=== PATIENT | male | born 1970 | race Caucasian/White ===

== ENCOUNTER 2017-01-16 15:33 | Inpatient (IN) | payer OTHER ==
[~2017-01-16] VITALS: Ht 177.8 cm; Wt 122.0 kg
[2017-01-16 18:09] VITALS: PULSE 85
[2017-01-16 18:14] VITALS: BP 122/80; PULSE 85; RESP 18; O2SAT 96
--- NOTE | 2017-01-16 18:28 | NUR ---
Admit Pt admitted via EMS at 1755. Conversant and able to laugh with EMS staff. Rating chest pain 01/27. VSS. Tele SR. O2 at 2L NC sats stable. notified that pt has arrived. Pt oriented to room. Will continue to monitor.
[2017-01-16] MEDS ORDERED: Ondansetron 2 mg/mL 2 mL Inj IVPUSH PRN (19:55)
[2017-01-16] MEDS ORDERED: Polyethylene Glycol (PEG) 17 Gm Powder PO PRN (19:55)
[2017-01-16] MEDS ORDERED: Alum-Mag Hydrox-Simeth 30 mL Suspension PO PRN (19:55)
[2017-01-16] MEDS ORDERED: Senna-Docusate 8.6-50 mg Tablet PO PRN (19:55)
--- NOTE | 2017-01-16 20:21 | PCM.HPMED ---
Subjective Date of Service Jan 16, 2017 Primary Provider: Admitting Physician: Julian Bailey MD Primary Care Physician: Tamara Attending Physician: Julian Bailey MD Admit Status: Direct Admit (patient transferred from [facility] ED) Chief Complaint: Acute onset chest pain/pressure radiating to the left upper extremity and jaw onset today. History of Present Illness: This is a pleasant 46-year-old male with sleep apnea on CPAP mask, and reports being treated for prediabetes with metformin I his primary care provider at the [place]. Patient states his hemoglobin A1c has never been higher than 5.4. Patient presented to the [facility] ED via walk-in after having experienced acute onset today 8 out of 10 crushing chest pressure that radiated to his left upper extremity and shoulder and left jaw. He states that he was sitting at rest at work when he began to experience this pain. The pain lasted for approximately 10 minutes. He attempted to get up and walk across the street to the fire department to have his blood pressure checked and states that in the middle of the street he began to experience severe 10 out of 10 crushing chest pain. He was able to make it back to his office and was transported to the ED at that time by a coworker. Patient states that for the past 7 days he has been experiencing what he calls a heartburn type sensation and tightness in his chest. He reports that he has been under considerable amount of stressors at work. 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 He states that just this morning he informed his boss he needed additional help. Patient reports chills, diaphoresis, shortness of breath and dyspnea associated with this chest pain. Patient is currently taking metformin 500 mg twice a day for prediabetes. He has strong family history of diabetes and SC in his first surgery MOTHER and father. His father is alive but had his first SC at age 36, and his mother who is now at age 54 had her first SC. Patient denied nausea, vomiting , headaches, fevers, sore throat, cough, sick contacts, history of TB or family history of TB, weight loss, abdominal pain or diarrhea, constipation hematuria. Patient has no known drug allergies A [facility] patient EKG was essentially normal 2 and he had negative troponin I. She was given a GI cocktail without help. He was diagnosed with unstable angina by Jorge Andrews M.D. at [place]. He is a direct admit for acute coronary syndrome rule out and was admitted for observation and further workup. At [facility] ED patient was given Nitropaste 2 and states it did not help chest pain. Patient states he did get a headache. She was given 325 mg of aspirin, Tylenol 650 mg given once, and morphine IV 2 mg. She received Ativan 0.5 mg. Patient received IV Dilaudid 1 mg. Chest x-ray at [facility] was normal Chest CT angiogram showed: Normal lung herzog, normal great vessels, normal mediastinum, no masses, no infiltrates, no dissection, or aneurysm, no adenopathy, no effusion. EKGs: Normal sinus rhythm with a rate of 70 QTc 423, LA interval 174 ms, no ST segment elevation or depression, no T-wave abnormalities. Normal EKG. Labs from [facility] include: Hemogram showed: WBC 8.9, H/H 14.8/44.1 with normal differential, platelet count 335, PMNs 58.9% and lymphs 30.6%. Chemistry panel: Showed a total bilirubin of 1.2 which is high, range is 0.0-1.0 , otherwise normal chemistry panel. Troponin I less than 0.05 which is normal in the range of 0.00-1.5. INR was 1.0/ PTT 30 Review of Systems: A comprehensive review of systems was conducted and was negative except as mentioned in history of present illness. Home Medications Atorvastatin 20 mg daily Metformin 500 mg twice a day Magnesium oral PMH Obesity Migraine type Headaches, Prediabetes on metformin Obstructive sleep apnea, on CPAP Surgical History Right knee arthroscopic 2 most recently 10/08/2016 Deviated septum Appendectomy Cholecystectomy Vasectomy Family History Mother history of COPD , and history of SC at age 44, Father alive SC at age 36 Social History Hx Alcohol Use: Yes (rare) Hx Substance Use: No Hx Tobacco Use: No Living Arrangement: with Family (lives with his Nora telephone [phone]) Exam Vital Signs Vital Sign - Last Date Time Temp Pulse Resp B/P Pulse Ox O2 Delivery O2 Flow Rate FiO2 01/16/17 18:14 36.5 85 18 122/80 96 Nasal Cannula 1.00 Exam General: She is moderately obese, but alert and oriented 3 speaking full sentences, in no acute distress, resting comfortably in bed, jovial at times. HEENT: NC/AT, eyes, PERRLA, EOMI, neck, soft supple, no adenopathy, no JVD, no masses, no thyromegaly, throat mucous membranes pink and moist, no erythema, no exudates, no tonsillar swelling, no uvular deviation. Lungs: CTAB all herzog, no wheezes, no rhonchi, no crackles, no adventitious lung sounds, no use of accessory muscles of respiration, good air movement, good respiratory effort. Heart: Regular rate and rhythm, no murmur, S1-S2 present, no rub, no click, no distant heart sounds, no additional chest pain with anterior palpation of the chest wall Abdomen: Soft, nontender, protuberant, bowel sounds active, no rebound, no guarding, Genitourinary: No CVA tenderness, no suprapubic tenderness, no Hand catheter, Extremities: Muscle strength, 5 out of 5 upper/lower extremity and symmetric laterally, pulses equal and symmetric upper/lower extremity including radial and dorsalis pedis, no edema Neurologic: Grossly neurologically intact, speaking in full sentences, no focal neurological signs, no nuchal signs Skin: Is warm dry and nondiaphoretic, no rashes Psychiatric: Mood is cheerful and mood and affect are congruent and appropriate. Assessment & Plan Patient is a pleasant 46-year-old male with history of sleep apnea and prediabetes on metformin twice a day he presented to [facility] ED complaining of acute onset 10 out of 10 crushing chest pressure today, was transferred to hospital with a diagnosis of unstable angina. Patient had normal troponin and EKGs at [facility], and was admitted for acute coronary syndrome rule out. # Acute Coronary Syndrome/SC, Present on Admission - Admitted for observation and ACS were rule out -Chest x-ray at [facility] was normal -Chest CT angiogram showed: Normal lung herzog, normal great vessels, normal mediastinum, no masses, no infiltrates, no dissection, or aneurysm, no adenopathy, no effusion. -EKG, 2 at [facility] was regular rate of 70 bpm, LA interval was normal 174 ms, QT interval was 392 and QTC was 423, no ST segment elevation or depression, no T-wave abnormalities. Normal EKG -Troponin I [facility] was less than 0.05 and negative, range is 0.0-1.5, -We will obtain troponin 2 -Stress testing in the morning -O2 Sats keep > 94% -Nothing by mouth after midnight -We will give IV fluids after midnight -Start Metoprolol 0.5 mg twice a day -Start Lisinopril 5 mg daily -Continue medication from home Atorvastatin 20 mg daily -Morphine for pain control -Will hold on Nitro SL, Nitro Garner, Nitro Paste as gives patient headaches and fails to relieve chest pain -Aspirin 81 mg daily -I will wait to start Plavix 300mg Loading with 75mg daily to follow, given patient does not have elevated troponin at this time -Will wait on starting unfractionated Heparin IV as patient does not have elevated troponin as of now. -Continuous Cardiac Monitoring/BP monitoring -Labs (Lipid Panel, CBC, CMP, PT/PTT/INR) -Heart Healthy Diet and then nothing by mouth after midnight Chronic problems #Obesity # Migraine Headaches, -Patient states he does take migraine headache medication but is unaware of what. - We will obtain medication information -Prediabetes - He states last A1c was 5.4, and has never had A1c higher - We will obtain a new A1c - We will hold on metformin # Obstructive sleep apnea, on CPAP, presumed stable - Not have CPAP mask with him Disposition: Admitted to in patient service with expected length of stay greater than 2 days, secondary to severity of presenting symptoms, treatment plan, complexity of clinical work up, and risk of adverse events. CODE STATUS: Full code PCP: Unknown DVT PE prophylaxis: SCD's Contact: Nora Parr [phone] Pain Evaluation: Pain not Controlled (a 6 out of 10 pain) VTE Prophylaxis: SCDs Resuscitation Status: CPR: Attempt Resuscitation John Connor DO Jan 16, 2017 20:21
[2017-01-16] MEDS: 0.9% Sodium Chloride 1,000 ML IV SCH (20:54)
[2017-01-16 20:57] LABS: Creatine Kinase 196 U/L (21-232); Magnesium 2.1 mg/dL (1.6-2.6)
[2017-01-16 21:07] LABS: TROPONIN T < 0.010 ug/L (0.0-0.011)
[2017-01-16] MEDS ORDERED: HYDROmorphone 0.5 mg/0.5 mL iSecure Syringe IVPUSH PRN (21:55)
[2017-01-16 23:14] VITALS: BP 116/75; PULSE 72; RESP 20; O2SAT 94
[2017-01-17] MEDS: Sodium Chloride LOK Flush 10 mL Syringe IVFLUSH SCH ×3 (00:06→16:30)
[2017-01-17 02:08] LABS: BASOPHILS % (AUTO) 0.2 % (0-3); EOSINOPHILS % (AUTO) 2.8 % (0-5); MONOCYTES % (AUTO) 8.4 % (4-12); Mean Corpuscular Volume 89.7 fL (81-100); NEUTROPHILS % (AUTO) 65.1 % (40-74); Platelet Count 282 bil/L (150-400)
[2017-01-17 03:03] LABS: Creatine Kinase 233 U/L (21-232)
[2017-01-17 03:16] VITALS: BP 119/79; PULSE 69; RESP 20; O2SAT 96
[2017-01-17 05:01] VITALS: PULSE 56
[2017-01-17 07:48] VITALS: PULSE 70
[2017-01-17 08:30] VITALS: BP 128/89; PULSE 87; RESP 14; O2SAT 97
--- NOTE | 2017-01-17 09:07 | NUR ---
Stress test Pt down to stress test at 0845. Stable and w/o complaints. Tele notified Addendum: 01/17/17 at 1108 by MIHIR GARCIA RN Pt back from stress test at 11:02. Portia.
[2017-01-17] MEDS: 0.9% Sodium Chloride 1,000 ML IV SCH (11:41)
--- NOTE | 2017-01-17 12:21 | DRSVH ---
PROCEDURE: 1 DAY TREADMILL STRESS TEST Rest and exercise myocardial perfusion SPECT with gated imaging and ejection fraction RADIOPHARMACEUTICAL: 11.3 mCi Tc-99m tetrafosmin IV at rest and 31.1 mCi Tc-99m tetrafosmin IV at pe ak exercise. [id number]-zoiscfsy was performed. INDICATIONS: Chest Pain. TECHNIQUE: Radiopharmaceutical was injected at peak stress test, and also at rest. SPECT images wer e obtained. SPECT myocardial perfusion images were displayed in short axis, horizontal long axis, an d vertical long axis views. Gated images were reviewed using AutoQUANT software. COMPARISON: None. CARDIAC STRESS: A standard [place]ell treadmill exercise tolerance test was performed by the patient under the supervision of an attending staff. The patient exercised for 7 minutes and 00 seconds; functional aerobic impai rment (CHRISTINE) is +25 %. Hemodynamic data: There is normal blood pressure and heart rate response to exercise stress. Patien t achieved 92% of maximum predicted heart rate at peak exercise. Symptoms: Patient reported 3/10 sternal chest pain which worsen with deep rest prior to exercise. Lissette st pain increased to 4/10 with exercise. EKG: Baseline EKG demonstrated normal sinus rhythm. Stress EKG demonstrated 1 mm flat to downsloping ST segment depression in lateral leads. Minor ST segment elevation in lead aVL noted during stage III . ST changes appeared upsloping by peak exercise and during recovery. FINDINGS: Raw data: There is good myocardial labeling by radiotracer. No significant motion artifacts. Left ventricle function: Gated images demonstrate normal left ventricle wall thickening. No segment al wall motion abnormality. No subjective evidence of transient ischemic dilation. The left ventric le resting end-diastolic volume is 92 mL. Left ventricle stress ejection fraction is 69%; normal sina ues are above 45%. Myocardial perfusion: There is a small, apparent fixed perfusion defect in the cardiac apex. Apparen t fixed perfusion defect involving the cardiac apex demonstrates near complete normalization in the p ирина position. No reversible perfusion defects. IMPRESSION: 1. Small fixed perfusion defect in the cardiac apex which demonstrates near-complete normalization in the prone position which suggests the finding is related to diaphragmatic attenuation artifact. 2. No reversible perfusion defects identified. 3. Normal left ventricular function with no segmental wall motion abnormalities and normal stress LVE F of 69%. 4. Reduced exercise capacity with functional aerobic impairment of +25%. PQRS ATTESTATIONS: Measure 322 - Is this imaging test primarily performed on a low-risk surgery patient for preoperative evaluation within 30 days preceding their low-risk non-cardiac surgery? Low-risk surgery is defined as cardiac or myocardial infarction less than 1%, including (but not limited to) endoscopic pr ocedures, superficial procedures, cataract surgery, and excisional breast surgery: Answer: No Measure 323 - Is this imaging test performed primarily for the monitoring of an asymptomatic patient who had percutaneous coronary intervention on the visit date or within 2 years of the visit date? An swer: No Measure 324 - Is this imaging test performed primarily for the initial detection and risk assessment on an asymptomatic, low coronary heart disease patient? Low CHD risk definition = clinicians should consider the maximum number of available patient factors used to estimate risk based on [place] (A TP III criteria), typically age, gender, diabetes, smoking status, and use of blood pressure medicati on, and integrate age appropriate estimates for missing elements, such as LDL or standard blood press ure. Answer: No Dictated by: Elo Christine MD, PhD on 01/17/2017 at 12:06 Approved by: Elo Christine MD, PhD on 01/17/2017 at 12:19
[2017-01-17 12:53] VITALS: BP 126/85; PULSE 64; RESP 16; O2SAT 99
--- NOTE | 2017-01-17 12:55 | NUR ---
Status Per MD, pt to remain NPO for possible further testing. Pt aware. Stable and w/o complaints in bed. Will continue to monitor.
[2017-01-17] MEDS ORDERED: MAGN420T PO (13:01)
[2017-01-17] MEDS ORDERED: VERA120T5 PO (13:01)
[2017-01-17] MEDS ORDERED: ATOR20TA PO (13:01)
[2017-01-17] MEDS ORDERED: METF500T4 PO (13:01)
[2017-01-17] MEDS ORDERED: AMLO2.5T PO (13:55)
--- NOTE | 2017-01-17 15:52 | PCM.DIMED ---
Anselmo Holt DO 01/17/17 1307: Discharge Instructions Date of Service Jan 17, 2017 Dates of Hospitalization Jan 16, 2017 at 18:53 Discharge Diagnosis Discharge Diagnosis Chest pain secondary to coronary artery vasospasm Medication Instructions Additional med instructions Continue your home verapamil daily Test Results Test Results PROCEDURE: 1 DAY TREADMILL STRESS TEST IMPRESSION: 1. Small fixed perfusion defect in the cardiac apex which demonstrates near- complete normalization in the prone position which suggests the finding is related to diaphragmatic attenuation artifact. 2. No reversible perfusion defects identified. 3. Normal left ventricular function with no segmental wall motion abnormalities and normal stress LVEF of 69%. 4. Reduced exercise capacity with functional aerobic impairment of +25%. Diet Discharge Diet: No restrictions Activity Discharge Activity: No restrictions Call your provider Call your provider for: Shortness of breath, Chest pain, Weakness (unilateral) Patient Instructions Patient Instructions You likely had an episode of coronary artery vasospasm, which likely occured because of your migraine. Your current medication Verapimil works well for controlling it. Continue taking your verapimil medication daily. Follow up with your primary care physician, Dr. Sosa Packer at the [facility] in 1-2 weeks. Follow-up Provider: Sosa Packer MD Follow-up with PCP in: 1 week Attending's Statement 1-2 weeks John Gibson DO 01/18/17 1337: Discharge Instructions Attending's Statement Read and agree Anselmo Holt DO Jan 17, 2017 13:07 John Gibson DO Jan 18, 2017 13:37
--- NOTE | 2017-01-17 17:16 | PCM.DC.MED ---
Discharge Summary Date of Service Jan 17, 2017 Dates of Hospitalization Date of Hospital Admission Jan 16, 2017 at 18:53 Date of Discharge: Jan 17, 2017 Providers: Admitting Physician: John Gibson DO [facility] Attending Physician: John Gibson DO Senior Resident: Robert Melton DO Sider Resident: Anselmo Holt DO Diagnosis at Time of Discharge Diagnosis at Time of Discharge Chest pain secondary to coronary artery vasospasm Consultations Cardiology Procedures ECG 12 Lead Normal Sinus Rhythm Other Diagnostics PROCEDURE: 1 DAY TREADMILL STRESS TEST IMPRESSION: 1. Small fixed perfusion defect in the cardiac apex which demonstrates near- complete normalization in the prone position which suggests the finding is related to diaphragmatic attenuation artifact. 2. No reversible perfusion defects identified. 3. Normal left ventricular function with no segmental wall motion abnormalities and normal stress LVEF of 69%. 4. Reduced exercise capacity with functional aerobic impairment of +25%. Brief History Patient is a 46 yr old male with past medical history of obstructive sleep apnea on CPAP, migraine headaches, and pre-diabetes on Metformin, who presented to [facility] ED on 01/16/17 with sudden onset of substernal chest pain/ pressure that radiated to his left neck, jaw and left upper extremity. 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 At [facility], EKG was essentially normal 2 and he had negative troponin I. He was given a GI cocktail without help. He was diagnosed with unstable angina by Jorge Andrews M.D. at [place]. He was transferred to [facility] as a direct admit for acute coronary syndrome rule out and was admitted for observation and further workup. Repeat Troponin x 2 and EKG were negative. While here, he had an exercise stress test done that was unremarkable. Per cardiology consult, it is believed this episode of chest pain is likely related to coronary artery vasospasm as he was beginning to have a migraine prior to the event. Per recommendation, he was discharged with recommendation to continue his verapamil daily. Hospital Course Patient is a pleasant 46-year-old male with history of sleep apnea and prediabetes on metformin twice a day he presented to [facility] ED complaining of acute onset 10 out of 10 crushing chest pressure today, was transferred to hospital with a diagnosis of unstable angina. Patient had normal troponin and EKGs at [facility], and was admitted for acute coronary syndrome rule out. # Chest Pain Secondary to Coronary Artery vasospasm - Was Admitted for observation and ACS rule out -Chest x-ray at [facility] was normal -Chest CT angiogram showed: Normal lung herzog, normal great vessels, normal mediastinum, no masses, no infiltrates, no dissection, or aneurysm, no adenopathy, no effusion. -EKG, 2 at [facility] was regular rate of 70 bpm, [place] interval was normal 174 ms, QT interval was 392 and QTC was 423, no ST segment elevation or depression, no T-wave abnormalities. Normal EKG -Troponin I [facility] was less than 0.05 and negative, range is 0.0-1.5, -Troponin x 2 negative at -Stress test results were normal -Started Metoprolol, Lisinopril 5 mg daily 0.5 mg twice a day for hospital stay -Continued medication from home Atorvastatin 20 mg daily -Aspirin 81 mg was given -Plavix 300mg Loading with 75mg was held as he did not have an elevated troponin Chronic problems #Obesity # Migraine Headaches, -Patient uses verapamil for migraine headaches -Prediabetes - He states last A1c was 5.4, and has never had A1c higher - Current A1c 6.0 in hospital # Obstructive sleep apnea, on CPAP - He did not have CPAP mask with him Exam Vital Signs (Last) Date Time Temp Pulse Resp B/P Pulse Ox O2 Delivery O2 Flow Rate FiO2 01/17/17 12:53 36.9 64 16 126/85 99 Room Air 01/16/17 18:14 1.00 Exam General: She is moderately obese, but alert and oriented 3 speaking full sentences, in no acute distress, resting comfortably in bed, jovial at times. HEENT: NC/AT, eyes, PERRLA, EOMI, neck, soft supple, no adenopathy, no JVD, no masses, no thyromegaly, throat mucous membranes pink and moist, no erythema, no exudates, no tonsillar swelling, no uvular deviation. Lungs: CTAB all herzog, no wheezes, no rhonchi, no crackles, no adventitious lung sounds, no use of accessory muscles of respiration, good air movement, good respiratory effort. Heart: Regular rate and rhythm, no murmur, S1-S2 present, no rub, no click, no distant heart sounds, no additional chest pain with anterior palpation of the chest wall Abdomen: Soft, nontender, protuberant, bowel sounds active, no rebound, no guarding, Genitourinary: No CVA tenderness, no suprapubic tenderness, no Hand catheter, Extremities: Muscle strength, 5 out of 5 upper/lower extremity and symmetric laterally, pulses equal and symmetric upper/lower extremity including radial and dorsalis pedis, no edema Neurologic: Grossly neurologically intact, speaking in full sentences, no focal neurological signs, no nuchal signs Skin: Is warm dry and nondiaphoretic, no rashes Psychiatric: Mood is cheerful and mood and affect are congruent and appropriate. Test 01/16/17 20:20 01/17/17 01:50 Hemoglobin A1c 6.0% (4.8-5.6) Magnesium Level 2.1mg/dL (1.6-2.6) Thyroid Stimulating Hormone (TSH) 3.640uIU/mL (0.450-4.500) Hold Duran Top Tube Received (Received) White Blood Count 9.2th/mm3 (3.8-10.1) Red Blood Count 4.36mil/mm3 (4.40-5.80) Hemoglobin 13.1g/dL (13.8-17.2) Hematocrit 39.1% (41.0-50.0) Mean Corpuscular Volume 89.7fL (81-100) Mean Corpuscular Hemoglobin 30.0pg (27.0-35.0) Mean Corpuscular Hemoglobin Concent 33.5% (32.0-37.0) Red Cell Distribution Width 12.9% (12.3-15.4) Platelet Count 282bil/L (150-400) Neutrophils (%) (Auto) 65.1% (40-74) Lymphocytes (%) (Auto) 23.2% (14-46) Monocytes (%) (Auto) 8.4% (4-12) Eosinophils (%) (Auto) 2.8% (0-5) Basophils (%) (Auto) 0.2% (0-3) Sodium Level 139mEq/L (134-144) Potassium Level 4.7mEq/L (3.5-5.2) Chloride Level 101mEq/L (97-108) Carbon Dioxide Level 24mmol/L (18-29) Blood Urea Nitrogen 22mg/dL (6-24) Creatinine 0.95mg/dL (0.76-1.27) Estimat Glomerular Filtration Rate 90mL/min (>59) Glucose Level 115mg/dL (60-99) Calcium Level 8.8mg/dL (8.5-10.1) Total Creatine Kinase 233U/L (21-232) Creatine Kinase MB 2.2ng/mL (0.0-10.4) Creatine Kinase MB % % (0.0-5.0) Troponin T 0.010ug/L (0.0-0.011) Triglycerides Level 291mg/dL (0-149) Cholesterol Level 162mg/dL (100-199) LDL Cholesterol, Calculated 67.800mg/dL (0-99) VLDL Cholesterol 58.200mg/dL HDL Cholesterol 36mg/dL (>39) Cholesterol/HDL Ratio 4.50 (0.0-4.4) Discharge Medications Discharge Medications Atorvastatin (Lipitor) 20 Mg Tablet 20 MG PO HS (Reported) Magnesium Oxide (Magnesium Oxide) 420 Mg Tablet 420 MG PO BID (Reported) Metformin (Metformin) 500 Mg Tablet 500 MG PO BID (Reported) Verapamil (Verapamil) 120 Mg Tablet 120 MG PO HS (Reported) Additional med instructions Continue your home verapamil daily Followup Plan Discharge Diet: No restrictions Discharge Activity: No restrictions Patient Instructions You likely had an episode of coronary artery vasospasm, which likely occured because of your migraine. Your current medication Verapimil works well for controlling it. Continue taking your verapimil medication daily. Follow up with your primary care physician, Dr. Sosa Packer at the [facility] in 1-2 weeks. Follow-up Provider: Sosa Packre MD Follow-up with PCP in: 1 week Time spent 35 minutes Attending Statement Patient was seen and evaluated at bedside in a directly supervised care provided by resident physician. I agree with the above documentation. Please note brief history section of hospital discharge summary contains both patient' s history of present illness addition to summary of hospital course, with additional details provided below. Anselmo Holt DO Jan 17, 2017 17:16 John Gibson DO Jan 19, 2017 12:36 Magnesium Oxide (Magnesium Oxide) 420 Mg Tablet 420 MG PO BID (Reported) Metformin (Metformin) 500 Mg Tablet 500 MG PO BID (Reported) Verapamil (Verapamil) 120 Mg Tablet 120 MG PO HS (Reported) Additional med instructions Continue your home verapamil daily Followup Plan Discharge Diet: No restrictions Discharge Activity: No restrictions Patient Instructions You likely had an episode of coronary artery vasospasm, which likely occured because of your migraine. Your current medication Verapimil works well for controlling it. Continue taking your verapimil medication daily. Follow up with your primary care physician, Dr. Sosa Packer at the [facility] in 1-2 weeks. Follow-up Provider: Sosa Packer MD Follow-up with PCP in: 1 week Anselmo Holt DO Jan 17, 2017 17:16
--- NOTE | 2017-01-17 17:50 | NUR ---
Discharge Pt dc/d in WC with REHAB[employer]PRE VOCATIONAL COUNSELOR and at 1749. Stable and w/o complaints. All discharge paperwork reviewed and pt verbalized understanding of all instructions. All belongings with pt.
--- NOTE | 2017-01-17 22:48 | PCM.CHPCAR ---
Consult Subjective Date of service Jan 17, 2017 Date of admit Jan 16, 2017 at 18:53 Provider Requesting Consult Primary Care Physician Primary Care Physician: [facility] Chief Complaint Acute onset chest pain/pressure radiating to neck, jaw and left upper extremity History of Present Illness Patient is a 46 yr old male with past medical history of obstructive sleep apnea on CPAP, migraine headaches, and pre-diabetes on Metformin, who presented to the ED on 01/16/17 with sudden onset of substernal chest pain/ pressure that radiated to his left neck, jaw and left upper extremity. 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 In addition, he reports having SOB, diaphoresis and chills. He notes that prior to the chest pain, he started experiencing a migraine headache but did not take anything for it. He recalls that he has been having some intermittent chest tightness during the past week and felt that it could have been just from acid reflux. In the ED he was given sublingual nitro and states that he experienced minimal relief. Today, he denies headaches, chest pain, SOB, nausea, vomiting and abdominal pain. Review of Systems Review of Systems Review of systems unremarkable except for pertinent positives described on HPI General: Denies: Change in exercise capacity Endurance Energy Fatigue Febrile episodes Flushing Good Appitite Isolated chills Night sweats No Chills No Fever Normal Appitite Other Poor Appitite Recurrent fever & chills Significant wt change Eyes: Denies: Double or blurred vision Other Problem or recent change in eyes Problem/recent change in vision Reduced vision Temporary vision loss Ears, Nose, Mouth & Throat: Denies: Any hearing loss Bleeding gums Complete hearing loss Dental abscess Difficulty speaking Difficulty swallowing Dysphagia Epistaxis or hoarseness Hoarseness Nasal discharge Other Partial hearing loss Poor dentition Positional vertigo Post nasal discharge Problems w/ ears,nose,mouth,throat Sinusitis Symptoms of aspiration TMJ Tinnitus Vocal cord paralysis Vocal cord polyp Respiratory: Reports: Significant dyspnea Denies: Cough Cough or wheezing Dry cough Dyspnea Dyspnea at rest Dyspnea supine Dyspnea with exertion Hemoptysis Hiccoughs Orthopnea Orthopnea or PND Other PND Pleuritic pain Productive cough Snoring and hypersomnolence Wheezing Cardiovascular: Reports: Chest Discomfort Denies: Abdominal distention Ascites Atrial Fibrillation Atypical chest discomfort Buttock claudication Calf claudication Chest discomfort typical for angina Chest discomfort, possibly angina Claudication Lightheadedness Lightheadedness or syncope Lower extremity edema Other Palpitations Postural lightheadedness Presyncope Skipped beats Syncopal episodes Tachycardia Thigh claudication Usual anginal symptoms Gastrointestinal: Denies: Abdominal bloating Abdominal discomfort Abdominal fullness Black stools Bloody diarrhea Michael colored stools Constipation Diarrhea Dyspepsia Dyspepsia or reflux symptoms GI blood loss Hematochezia Hemorrhoidal bleeding Hemorrhoids Loose stools Melana Mucoid diarrhea Nausea Other Recent melena or hematochezia Significant diarrhea/constipation Symptoms of reflux Ulcers or GI blood loss Vomiting Waterbrash Watery diarrhea Genitourinary: Denies: Dysuria Erectile dysfunction Frequency Heavy menstrual flow Hematuria Hesitancy Hot flashes Incontinence Irregular periods Mood swings Nocturia On Hemodialysis On Peritoneal Dialysis Other Perimenopausal symptoms Prostate symptoms Regular periods Symptoms of BPH Urinary symptoms Musculoskeletal: Denies: Arthritis Chronic back pain Cramping Degenerative disk disease Fibromyalgia Generalized arthritis Gout Gouty arthritis Joint pain Joint stiffness Joint swelling Muscle weakness Muscular pain Myalgias Osteoarthritis Other Radiculopathy Rheumatoid arthritis Sciatica Significant joint or back problems Significant myalgias Symptom spinal compression fracture Symptoms of spinal stenosis Neurological: Reports: Dizziness Other (headache) Denies: Any focal neuro deficits Any history of stroke/TIA symptoms Any recent focal neuro deficits Aphasis Ataxia Change in cognitive function Cluster headaches Confusion Dementia Expressive dysphasia Grand Mal seizures Headaches Hx unusual BERGER/confusion/memory loss Memory deficit Migraine headaches Numbness Paralysis Paresthesia Peripheral neuropathy Personality change Petit Mal seizures Positional vertigo Post herpetic neuralgia Radiculopathy Reduced level of consciousness Seizure disorder Slurred speech Symptoms of Parkinson's Disease Tension headaches Tremors Trigeminal neuralgia Unsteadiness Vertigo Weakness Integumentary: Denies: Any change in hair or nails Any rash or skin lesions Bruising Change in hair texture Changes in nails Ecchymosis Eczema Erythema Hair loss Hives Increased dryness of the skin Itching Nail pitting Other Rash Recent skin problems Shingles Skin discomfort Ulceration PMH Past Medical History obstructive sleep apnea, migraine headaches, pre-diabetes on Metformin Bedside Blood Glucose: 74 Scheduled Atorvastatin (Lipitor) 20 Mg Tablet 20 MG PO HS (Reported) Magnesium Oxide (Magnesium Oxide) 420 Mg Tablet 420 MG PO BID (Reported) Metformin (Metformin) 500 Mg Tablet 500 MG PO BID (Reported) Verapamil (Verapamil) 120 Mg Tablet 120 MG PO HS (Reported) Current Inpatient Medications Current Medications Sodium Chloride 10 ml 10 ml KEVIN IVFLUSH Last administered on 01/17/17 11:39; Admin Dose 10 ML; Start 01/17/17 at 00:30 Sodium Chloride 1,000 ml @ 80 mls/hr [id number] IV Last administered on 01/17/17 11:41; Admin Dose 80 MLS/HR; Start 01/16/17 at 19:51 Aspirin 81 mg DAILY PO Last administered on 01/17/17 11:39; Admin Dose 81 MG; Start 01/17/17 at 08:30 Lisinopril 5 mg HS PO Last administered on 01/16/17 20:54; Admin Dose 5 MG; Start 01/16/17 at 21:00 Metoprolol Tartrate 12.5 mg Q12 PO Last administered on 01/17/17 11:38; Admin Dose 12.5 MG; Start 01/16/17 at 20:30 Al Hydrox/Mg Hydrox/Simethicone 30 ml Q6 PRN PO; Start 01/16/17 at 19:55 Ondansetron HCl 4-8 mg prn nausea Q4 PRN IVPUSH; Start 01/16/17 at 19:55 Senna 1 tablet BID PRN PO; Start 01/16/17 at 19:55 Polyethylene Glycol 17 gm DAILY PRN PO; Start 01/16/17 at 19:55 Acetaminophen 325 mg Q6 PRN PO Last administered on 01/16/17 21:17; Admin Dose 325 MG; Start 01/16/17 at 19:55 Morphine Sulfate 1-5 mg prn pain not relie... Q5M PRN IVPUSH Last administered on 01/16/17 20:54; Admin Dose 2 MG; Start 01/16/17 at 19:55; Stop 01/16/17 at 21:55; Status DC Hydromorphone HCl 0.5 mg Q4HWA PRN IVPUSH Last administered on 01/16/17 22:09 ; Admin Dose 0.5 MG; Start 01/16/17 at 21:55 Allergies: Coded Allergies: No Known Allergies (Verified Adverse Reaction, Unknown, 01/16/17) Family History Family History Mother- hx of diabetes and [place]. at age 54 from [place] Father- first [place] at age 36 Social History Hx Alcohol Use: Yes (rare)Hx Substance Use: NoHx Tobacco Use: No Living Arrangement: with Family (lives with his [employer] telephone ) Exam Vital Signs Vital Sign - Last Date Time Temp Pulse Resp B/P Pulse Ox O2 Delivery O2 Flow Rate FiO2 01/17/17 12:53 36.9 64 16 126/85 99 Room Air 01/16/17 18:14 1.00 Intake and Output 01/16/17 01/16/17 01/17/17 Cumulative From/Thru 15:00 23:00 07:00 01/16/17 18:13 - 01/17/17 05:57 Intake Total 500 ml 500 ml Output Total 500 ml 500 ml Balance 0 ml 0 ml Intake Oral 500 ml 500 ml Output Urine Total 500 ml 500 ml # Voids 2 2 Objective General: Pleasant Skin: Warm & dry to touch Head: Normocephalic Eye: EOMS intact Neck: Nuchal obesity:JVP assess difficult Ears, Nose & Throat: Ears no gross abnormalities Chest: Clear auscultation w/o rales/wheeze Cardiac: Normal non-displaced apical impulse Regular rhythm with normal S1-S2 Normal S1 and S2 Pulses: Radial pulse Abdomen: Soft, non-distended, non-tender Lymphatic: No palpable lymphadenopathy Extremities: Warm w/o deformities,erythema noted Neurological: Alert & oriented Psychological: Affect & interaction appropriate Lab and Diagnostics Result Diagram: 01/17/17 0150 01/17/17 0150 12-lead ECG EKG, 2 at [facility] was regular rate of 70 bpm, ME interval was normal 174 ms, QT interval was 392 and QTC was 423, no ST segment elevation or depression, no T-wave abnormalities. Normal EKG Additional Diagnostics: Nuclear Stress Test IMPRESSION: 1. Small fixed perfusion defect in the cardiac apex which demonstrates near- complete normalization in the prone position which suggests the finding is related to diaphragmatic attenuation artifact. 2. No reversible perfusion defects identified. 3. Normal left ventricular function with no segmental wall motion abnormalities and normal stress LVEF of 69%. 4. Reduced exercise capacity with functional aerobic impairment of +25%. Dictated by: Elo Christine MD, PhD on 01/17/2017 at 12:06 Assessment & Plan Assessment Patient is a 46 yr old male with past medical history of RADHA, migraines and prediabetes presented with sudden onset of substernal chest pain/ pressure that radiated to his left neck, jaw and left upper extremity. Pain Evaluation: Pain not Controlled (a 6 out of 10 pain) VTE Prophylaxis: SCDs Plan: Acute Chest pain -Nuclear Stress Test showed no reversible perfusion defects -Chest x-ray at [place] was normal -Chest CT angiogram showed: Normal lung herzog, normal great vessels, normal mediastinum, no masses, no infiltrates, no dissection, or aneurysm, no adenopathy, no effusion. -EKG, 2 at [facility] was regular rate of 70 bpm, ME interval was normal 174 ms, QT interval was 392 and QTC was 423, no ST segment elevation or depression, no T-wave abnormalities. Normal EKG -Troponin negative X3 -Patient likely experienced chest pain due to coronary artery vasospasm -Recommend to continue home dose of Verapamil 120 mg qhs -Follow up with your primary care [facility] in 1-2 weeks. Resuscitation Status: CPR: Attempt Resuscitation Discharge Plan: Pt underwent reassuring gxt/mpi with no evidence of ischemia or prior infarct. His CP was preceded by BERGER so it is possible he had vasospasm. Recommend continuing CCB and f/u with PCP continue working on CAD risk factors such as excess weight, igt and radha Attending Statement I evaluated pt with and agree with her A&P. I edited this note Nancy Andersen DO Jan 17, 2017 14:30 Milvia Lee MD Jan 17, 2017 22:56 -EKG, 2 at [facility] was regular rate of 70 bpm, ME interval was normal 174 ms, QT interval was 392 and QTC was 423, no ST segment elevation or depression, no T-wave abnormalities. Normal EKG -Troponin negative X3 -Patient likely experienced chest pain due to coronary artery vasospasm -Recommend to continue home dose of Verapamil 120 mg qhs -Follow up with your primary care physician [facility] in 1-2 weeks. Resuscitation Status: CPR: Attempt Resuscitation Discharge Plan: Pt underwent reassuring gxt/mpi with no evidence of ischemia or prior infarct. His CP was preceded by BERGER so it is possible he had vasospasm. Recommend continuing CCB and f/u with PCP continue working on CAD risk factors such as excess weight, igt and radha Attending Statement I evaluated pt with and agree with her A&P. I edited this note Nancy Andersen DO Jan 17, 2017 14:30 Milvia Lee MD Jan 17, 2017 22:56
== END 2017-01-17 17:50 | disposition home or self-care (01) | DRG 311 ==
LOC: PCC 18:53
PROVIDERS: ADMIT Family Medicine; ATTEND Family Medicine
DX: I20.1 Angina pectoris with documented spasm (principal); Z79.84 Long term (current) use of oral hypoglycemic drugs; R73.03 Prediabetes; G47.33 Obstructive sleep apnea (adult) (pediatric); E66.09 Other obesity due to excess calories; G43.909 Migraine, unspecified, not intractable, without status migrainosus; Z68.38 Body mass index [BMI] 38.0-38.9, adult